=== PATIENT | male | born 1965 | race African-American/Black ===

== ENCOUNTER → 2016-10-24 | Outpatient (CLI) | payer OTHER ==
--- NOTE | ~2016-10-24 | CR170 ---
[facility] A Service of [facility] RADIOLOGY TEXT RESULTS PATIENT: LARY HIGHTOWER LOCATION: [facility] : 67 UNIT #: [id number] AGE: [address]: MAVIS DENNY APRN SEX: M ORDER DR: [id number] [facility] [address] [place], [place] [address] [id number] O MR#: [id number] Acc #: [id number] NAME: LARY HIGHTOWER : 1965 SEX: M STUDY DATE/TIME: 10/24/2016 11:08 UNIT: [facility] ROOM: STUDY DESCRIPTION: CR Knee 2 Views Rt Attending Physician: Mavis Denny A.P.R.N. Ordering Physician: Mavis Denny A.P.R.N. Primary Care Physician: [facility], MEDICAL IMAGING REPORT This report is preliminary unless electronic signature is present EXAM Right knee, 3 views. DATE OF EXAM 10/24/2016 HISTORY Right knee pain and swelling for 1 month, with no known injury. FINDINGS 3 views of the right knee demonstrate no fracture. The joint space is normally maintained. There is degenerative change with osteophytic spurring along the posterior aspect of the patella. The bones are normally mineralized. There is a small knee joint effusion. IMPRESSION 1. Degenerative change with small osteophytes along the posterior aspect of the patella. No evidence of fracture. 2. Small knee joint effusion. Dictated by... Boni De La Cruz M.D. THIS IS AN ELECTRONICALLY VERIFIED REPORT Boni De La Cruz M.D. at 10/25/2016 8:29 AM CARLO/cady TD: 10/24/2016 18:06 JOB #: [id number] MEDICAL IMAGING REPORT Page 1 of 1 COPY
== END | disposition home or self-care (01) ==
LOC: CRAD 10:59
DX: M25.561 Pain in right knee (principal); M25.761 Osteophyte, right knee; M25.461 Effusion, right knee
CPT/HCPCS: 73560